=== PATIENT | male | born 1975 | race Caucasian/White ===

== ENCOUNTER 2019-07-17 19:26 | Emergency (ER) | payer MEDICAID ==
[~2019-07-17] VITALS: Ht 167.6 cm; Wt 94.0 kg
[2019-07-17] MEDS ORDERED: SODIUM CHLORIDE 0.9% 1,000 ML IV ONE (23:39)
[2019-07-17] MEDS ORDERED: METOCLOPRAMIDE HCL 10MG/2ML VIAL IV ONE (23:45)
[2019-07-17] MEDS ORDERED: DIPHENHYDRAMINE 50MG/ML VIAL IV ONE (23:45)
[2019-07-18 00:04] LABS: BASOPHILS % 0.5 % (0.0-2.0); EOSINOPHILS % 1.6 % (0.0-5.0); HEMATOCRIT. 37.8 % (42.0-52.0); LYMPHOCYTES % 24.3 % (20.0-50.0); MEAN CORPUSCULAR HEMOGLOBIN 29.9 pg (28.0-32.0); MEAN CORPUSCULAR VOLUME 86.9 fL (80.0-94.0); MEAN PLATELET VOLUME 7.8 fl (7.4-10.4); NEUTROPHILS % 67.6 % (40.0-76.0); PLATELET 265 x1000/uL (130-400); RED BLOOD CELL COUNT 4.35 mill/uL (4.7-6.1); RED CELL DISTRIBUTION WIDTH 14.2 % (11.6-14.6)
[2019-07-18 00:09] LABS: CHLORIDE 108 mEq/L (98-107)
[2019-07-18 00:11] LABS: PROTHROMBIN TIME 10.5 sec (9.6-11.0)
[2019-07-18 03:07] VITALS: BP 138/78
[2019-07-18] MEDS ORDERED: IOHEXOL-350 100 ML BOTTLE ONE (05:18)
== END 2019-07-18 08:37 | disposition home or self-care (01) ==
LOC: ER 07-18 08:12
DX: M54.2 Cervicalgia (principal); R51 Headache; M54.9 Dorsalgia, unspecified; E11.9 Type 2 diabetes mellitus without complications; E78.00 Pure hypercholesterolemia, unspecified; I10 Essential (primary) hypertension
CPT/HCPCS: 36415; 70450; 70496; 70498; 71045; 80053; 84484; 85025; 85610; 93005; 96374; 96375; 99284; J1200; J2765; J7030; Q9967